=== PATIENT | female | born 1940 | race African-American/Black ===

== ENCOUNTER 2017-04-28 10:18 | Inpatient (IN) | payer MEDICARE, MEDICAID ==
[~2017-04-28] VITALS: Ht 180.3 cm; Wt 100.2 kg
[~2017-04-28 10:18] MED LIST: ALLO300T2 PO; ASPI-1159 PO; COR6 PO; DESI10TA3 PO; DOCU-150 PO; FURO80TA3 PO; HYDR-3933 PO; IBUP-2030 PO; LISI2.5T47 PO; MAPAP PO; MINOXIDIL PO; NORVASC PO; POTA10CA42 PO
[2017-04-28] MEDS ORDERED: FUROSEMIDE 100MG/10ML VIAL IVP ONE (11:00)
[2017-04-28 11:36] LABS: HEMATOCRIT. 32.7 % (36.0-48.0); HEMOGLOBIN. 10.7 g/dL (12.0-16.0); MEAN CORPUSCULAR HEMOGLOBIN 23.8 pg (28.0-32.0); MEAN CORPUSCULAR VOLUME 72.9 fL (81.0-99.0); MEAN PLATELET VOLUME 6.6 fl (7.4-10.4); PLATELET 308 x1000/uL (130-400); RED BLOOD CELL COUNT 4.49 mill/uL (4.2-5.4); RED CELL DISTRIBUTION WIDTH 22.7 % (11.6-14.6)
[2017-04-28 11:52] LABS: TROPONIN I 0.04 ng/mL (0.00-0.04)
[2017-04-28 12:55] LABS: PLATELET ESTIMATE NORMAL
[2017-04-28] MEDS ORDERED: CARV3.1242 PO (13:45)
[2017-04-28] MEDS ORDERED: ALLO300T2 PO (13:45)
[2017-04-28] MEDS ORDERED: LISI-604 PO (13:45)
[2017-04-28] MEDS ORDERED: SPIR25TA4 PO (13:45)
[2017-04-28] MEDS ORDERED: MINO2.5T19 GT (13:45)
[2017-04-28] MEDS ORDERED: GABA-531 PO (13:45)
[2017-04-28] MEDS ORDERED: DOCU-150 PO (13:45)
[2017-04-28] MEDS ORDERED: FURO80TA3 PO (13:45)
[2017-04-28] MEDS ORDERED: ASPI-1159 PO (13:45)
[2017-04-28] MEDS ORDERED: POTA10CA42 PO (13:45)
[2017-04-28] MEDS ORDERED: AMLO5TAB4 PO (13:45)
[2017-04-28] MEDS ORDERED: HYDR-4094 PO (13:45)
[2017-04-28 15:50] VITALS: BP 145/73
[2017-04-28] MEDS ORDERED: FUROSEMIDE 40MG/4ML VIAL IVP SCH (17:00)
[2017-04-28 18:00] VITALS: BP 154/85
[2017-04-28] MEDS ORDERED: MORPHINE SULFATE 4 MG/ML CPJ (NOT FOR IM USE) IV PRN (19:00)
[2017-04-28] MEDS ORDERED: MAGNESIUM/ALUMINUM HYDROXIDE/SIMETHICONE 30ML UDC PO PRN (19:00)
[2017-04-28] MEDS ORDERED: ONDANSETRON HCL 4MG/2ML VIAL IV PRN (19:00)
[2017-04-28] MEDS ORDERED: ACETAMINOPHEN 650MG/20.3ML UDC GT PRN (19:00)
[2017-04-28] MEDS ORDERED: IPRATROPIUM/ALBUTEROL 0.5-3(2.5)MG/3ML NEB INH PRN (19:00)
[2017-04-28] MEDS ORDERED: NA PHOS,M-B/NA PHOS,DI-BA ENEMA 118ML PR PRN (19:00)
[2017-04-28] MEDS ORDERED: DEXTROSE 50% WATER 50ML SYRINGE IV PRN (19:00)
[2017-04-28] MEDS ORDERED: ACETAMINOPHEN 650MG SUPP PR PRN (19:00)
[2017-04-28] MEDS ORDERED: HYDROCODONE/ACETAMINOPHEN 5/325MG TABLET PO PRN (19:00)
[2017-04-28] MEDS ORDERED: DIPHENHYDRAMINE 50MG/ML VIAL IV PRN (19:00)
[2017-04-28 20:00] VITALS: BP 144/67
[2017-04-28] MEDS: INSULIN LISPRO 100 UNITS/ML SUBCUT SCH (21:00)
[2017-04-28] MEDS: SODIUM CHLORIDE 0.9% INJ 3ML FLUSH IVF SCH (21:01)
[2017-04-28] MEDS: ENOXAPARIN 40MG/0.4ML SYR SUBCUT SCH (21:06)
[2017-04-28] MEDS: BLOOD SUGAR DIAGNOSTIC STRIP TEST SCH (21:07)
[2017-04-28] MEDS: CARVEDILOL 6.25 MG TABLET PO SCH (21:07)
[2017-04-28 22:00] VITALS: BP 158/64
[2017-04-28] MEDS: LORAZEPAM 2MG/ML CPJ IV PRN (23:41)
[2017-04-29] VITALS (11 sets, daily range): BP systolic 120–172; BP diastolic 63–78
[2017-04-29] MEDS: SODIUM CHLORIDE 0.9% INJ 3ML FLUSH IVF SCH ×3 (05:00→21:14)
[2017-04-29 06:52] LABS: CHLORIDE 105 mEq/L (98-107)
[2017-04-29 06:52] LABS: HEMATOCRIT. 29.5 % (36.0-48.0); HEMOGLOBIN. 9.5 g/dL (12.0-16.0); MEAN CORPUSCULAR HEMOGLOBIN 23.4 pg (28.0-32.0); MEAN CORPUSCULAR VOLUME 72.6 fL (81.0-99.0); MEAN PLATELET VOLUME 7.5 fl (7.4-10.4); PLATELET 286 x1000/uL (130-400); RED BLOOD CELL COUNT 4.06 mill/uL (4.2-5.4); RED CELL DISTRIBUTION WIDTH 22.7 % (11.6-14.6)
[2017-04-29 07:02] LABS: CARBON DIOXIDE 27 mEq/L (21-32)
[2017-04-29 07:42] LABS: PHOSPHORUS 3.9 mg/dL (2.5-4.9)
[2017-04-29] MEDS: INSULIN LISPRO 100 UNITS/ML SUBCUT SCH (08:00)
[2017-04-29] MEDS: BLOOD SUGAR DIAGNOSTIC STRIP TEST SCH (08:12)
[2017-04-29] MEDS: CARVEDILOL 6.25 MG TABLET PO SCH ×2 (08:51→20:38)
[2017-04-29] MEDS: FUROSEMIDE 40MG/4ML VIAL IV SCH ×2 (08:51→17:53)
[2017-04-29 12:39] LABS: PLATELET ESTIMATE NORMAL
[2017-04-29 16:57] LABS: D-DIMER 3.65 mg/L FEU (<0.50); INR 1.1; PROTHROMBIN TIME 11.1 sec (9.4-11.6)
[2017-04-29 17:23] LABS: *AMPHETAMINES SCREEN URINE NEGATIVE (NEGATIVE); *BARBITURATES SCREEN URINE NEGATIVE (NEGATIVE); *BENZODIAZEPINES SCREEN URINE NEGATIVE (NEGATIVE); *COCAINE SCREEN URINE NEGATIVE (NEGATIVE); CANNABINOID URINE SCREEN NEGATIVE (NEGATIVE); METHADONE URINE SCREEN NEGATIVE (NEGATIVE); OPIATES URINE SCREEN NEGATIVE (NEGATIVE); PHENCYCLIDINE URINE SCREEN NEGATIVE (NEGATIVE)
[2017-04-29 17:31] LABS: CLARITY URINE CLEAR (CLEAR); COLOR URINE YELLOW (YELLOW); GLUCOSE URINE NEGATIVE (NEGATIVE); KETONES URINE NEGATIVE (NEGATIVE); LEUKOCYTE ESTERASE URINE NEGATIVE (NEGATIVE); NITRITE URINE NEGATIVE (NEGATIVE); OCCULT BLOOD URINE 1+ (NEGATIVE); PROTEIN URINE 4+ (NEGATIVE); SPECIFIC GRAVITY URINE 1.013 (1.005-1.030); UROBILINOGEN URINE 0.2 E.U./dL (0.2-1.0)
[2017-04-29] MEDS: ENOXAPARIN 40MG/0.4ML SYR SUBCUT SCH (20:37)
[2017-04-30] VITALS (13 sets, daily range): BP systolic 141–183; BP diastolic 68–90
[2017-04-30 00:07] LABS: CREATINE KINASE MB FRACTION 1.8 ng/mL (0.5-3.6); TROPONIN I 0.04 ng/mL (0.00-0.04)
[2017-04-30] MEDS: CLONIDINE 0.1MG TABLET PO PRN ×2 (00:36→14:51)
[2017-04-30] MEDS: LORAZEPAM 2MG/ML CPJ IV PRN (00:39)
[2017-04-30] MEDS: SODIUM CHLORIDE 0.9% INJ 3ML FLUSH IVF SCH ×2 (06:39→13:35)
[2017-04-30 06:40] LABS: HEMATOCRIT. 29.2 % (36.0-48.0); HEMOGLOBIN. 9.4 g/dL (12.0-16.0); MEAN CORPUSCULAR HEMOGLOBIN 23.6 pg (28.0-32.0); MEAN CORPUSCULAR VOLUME 73.1 fL (81.0-99.0); MEAN PLATELET VOLUME 7.4 fl (7.4-10.4); PLATELET 270 x1000/uL (130-400); RED CELL DISTRIBUTION WIDTH 22.5 % (11.6-14.6)
[2017-04-30 06:44] LABS: CARBON DIOXIDE 27 mEq/L (21-32); CHLORIDE 106 mEq/L (98-107); CREATINE KINASE 41 IU/L (26-192); CREATINE KINASE MB FRACTION 0.8 ng/mL (0.5-3.6); PHOSPHORUS 3.6 mg/dL (2.5-4.9); TOTAL IRON BINDING CAPACITY 182 ug/dL (250-450); TROPONIN I 0.04 ng/mL (0.00-0.04)
[2017-04-30 07:54] LABS: HEPATITIS B SURFACE ANTIGEN NEGATIVE
[2017-04-30 08:22] LABS: HEPATITIS B CORE AB IGM NEGATIVE
[2017-04-30 08:24] LABS: HEPATITIS A AB IGM NEGATIVE (NEGATIVE)
[2017-04-30] MEDS: CARVEDILOL 6.25 MG TABLET PO SCH (08:42)
[2017-04-30] MEDS: FUROSEMIDE 40MG/4ML VIAL IV SCH (08:43)
[2017-04-30] MEDS ORDERED: LOSARTAN POTASSIUM 25 MG TABLET PO SCH (09:00)
[2017-04-30] MEDS ORDERED: LOSA50TA20 PO (09:48)
[2017-04-30 11:12] LABS: PLATELET ESTIMATE NORMAL
[2017-04-30 16:42] LABS: CREATINE KINASE MB FRACTION 1.5 ng/mL (0.5-3.6); TROPONIN I 0.03 ng/mL (0.00-0.04)
[2017-04-30] MEDS ORDERED: ENOXAPARIN 30MG/0.3ML SYR SUBCUT SCH (21:00)
[2017-05-01] MEDS ORDERED: LOSARTAN POTASSIUM 50 MG TABLET PO SCH (09:00)
[2017-05-02 09:07] LABS: A/G RATIO 0.6 (0.7-1.7); ALPHA-1-GLOBULIN 0.3 g/dL (0.0-0.4); ALPHA-2-GLOBULIN 1.1 g/dL (0.4-1.0); BETA GLOBULIN 0.8 g/dL (0.7-1.3); GAMMA GLOBULINS 1.3 g/dL (0.4-1.8); GLOBULIN TOTAL 3.5 g/dL (2.2-3.9); IMMUNOGLOBULIN A 257 mg/dL (64-422); IMMUNOGLOBULIN G 1266 mg/dL (700-1600); IMMUNOGLOBULIN M 110 mg/dL (26-217); M-SPIKE Not Observed g/dL (Not Observed); TOTAL PROTEIN SERUM 5.5 g/dL (6.0-8.5)
[2017-05-02 12:00] LABS: ANA IFA Negative (.); ANTI-MYELOPEROXIDASE AB < 9.0 U/mL (0.0-9.0); ANTI-PROTEINASE 3 ABS < 3.5 U/mL (0.0-3.5); ATYPICAL P-ANCA <1:20 titer (Neg:<1:20); CYTOPLASMIC C-ANCA <1:20 titer (Neg:<1:20); PERINUCLEAR P-ANCA <1:20 titer (Neg:<1:20)
== END 2017-04-30 17:25 | disposition home or self-care (01) | DRG 291 ==
LOC: ER 10:18 → 5EST 12:47 → ENRESERV 14:42
PROVIDERS: ADMIT Family Medicine; ATTEND Family Medicine
DX: I13.0 Hypertensive heart and chronic kidney disease with heart failure and stage 1 through stage 4 chronic kidney disease, or unspecified chronic kidney disease (principal); E43 Unspecified severe protein-calorie malnutrition; N17.0 Acute kidney failure with tubular necrosis; N04.9 Nephrotic syndrome with unspecified morphologic changes; B02.29 Other postherpetic nervous system involvement; I27.2 Other secondary pulmonary hypertension; I42.9 Cardiomyopathy, unspecified; D64.9 Anemia, unspecified; E66.9 Obesity, unspecified; I49.5 Sick sinus syndrome; M17.0 Bilateral primary osteoarthritis of knee; R73.9 Hyperglycemia, unspecified; R26.2 Difficulty in walking, not elsewhere classified; E78.5 Hyperlipidemia, unspecified; I50.9 Heart failure, unspecified; I73.9 Peripheral vascular disease, unspecified; M10.9 Gout, unspecified; N18.3 Chronic kidney disease, stage 3 (moderate); Z82.49 Family history of ischemic heart disease and other diseases of the circulatory system; Z86.19 Personal history of other infectious and parasitic diseases; Z68.30 Body mass index [BMI] 30.0-30.9, adult; Z95.0 Presence of cardiac pacemaker; Z79.82 Long term (current) use of aspirin; Z79.899 Other long term (current) drug therapy
CPT/HCPCS: 36415; 51702; 71010; 76770; 80048; 80053; 80061; 80305; 81001; 82550; 82553; 82570; 82784; 82962; 83036; 83520; 83540; 83550; 83735; 83880; 84100; 84155; 84156; 84165; 84439; 84443; 84484; 84550; 85025; 85379; 85610; 85651; 86256; 86334; 86430; 86705; 86709; 86803; 87086; 87340; 93005; 93306; 96374; 99285; C1893; J1650; J1940; J2060; A4315

== ENCOUNTER 2017-05-13 11:29 | Inpatient (IN) | payer MEDICARE, MEDICAID ==
[~2017-05-13] VITALS: Ht 180.3 cm; Wt 99.8 kg
[~2017-05-13 11:29] MED LIST changes: -ALLO300T2 PO; +AMLO5TAB4 PO; -ASPI-1159 PO; -DESI10TA3 PO; -DOCU-150 PO; -HYDR-3933 PO; -IBUP-2030 PO; -LISI2.5T47 PO; +LOSA50TA20 PO; -MAPAP PO; -MINOXIDIL PO; -NORVASC PO
[2017-05-13] MEDS ORDERED: FUROSEMIDE 40MG/4ML VIAL IV STA (12:05)
[2017-05-13 12:42] LABS: CLARITY URINE CLOUDY (CLEAR); COLOR URINE YELLOW (YELLOW); GLUCOSE URINE NEGATIVE (NEGATIVE); KETONES URINE NEGATIVE (NEGATIVE); LEUKOCYTE ESTERASE URINE NEGATIVE (NEGATIVE); NITRITE URINE NEGATIVE (NEGATIVE); OCCULT BLOOD URINE 2+ (NEGATIVE); PH URINE 5.5 (4.5-8.0); PROTEIN URINE 4+ (NEGATIVE); SPECIFIC GRAVITY URINE 1.026 (1.005-1.030); UROBILINOGEN URINE 0.2 E.U./dL (0.2-1.0)
[2017-05-13 13:34] LABS: HEMATOCRIT. 33.5 % (36.0-48.0); HEMOGLOBIN. 10.8 g/dL (12.0-16.0); MEAN CORPUSCULAR HEMOGLOBIN 23.5 pg (28.0-32.0); MEAN CORPUSCULAR VOLUME 72.8 fL (81.0-99.0); MEAN PLATELET VOLUME 7.5 fl (7.4-10.4); PLATELET 325 x1000/uL (130-400); RED CELL DISTRIBUTION WIDTH 22.8 % (11.6-14.6)
[2017-05-13 13:37] LABS: PARTIAL THROMBOPLASTIN TIME 28.9 sec (23.4-31.0); PROTHROMBIN TIME 10.6 sec (9.4-11.6)
[2017-05-13 13:43] LABS: CARBON DIOXIDE 26 mEq/L (21-32); CHLORIDE 105 mEq/L (98-107)
[2017-05-13 13:45] LABS: D-DIMER 6.2 mg/L FEU (<0.50)
[2017-05-13 13:46] LABS: CREATINE KINASE 66 IU/L (26-192); TROPONIN I 0.05 ng/mL (0.00-0.04)
[2017-05-13 14:28] LABS: ATYPICAL LYMPHOCYTES 1; PLATELET ESTIMATE NORMAL
[2017-05-13 19:35] VITALS: BP_SYST 140; BP_SYST 152; BP_DIAS 62; BP_DIAS 76
[2017-05-13] MEDS ORDERED: ONDANSETRON HCL 4MG/2ML VIAL IV PRN (21:15)
[2017-05-13] MEDS ORDERED: ACETAMINOPHEN 325MG TABLET PO PRN (21:15)
[2017-05-13] MEDS ORDERED: HYDR-523 PO (21:22)
[2017-05-13] MEDS ORDERED: MINO2.5T19 PO (21:22)
[2017-05-13] MEDS ORDERED: SPIR25TA4 PO (21:22)
[2017-05-13] MEDS ORDERED: GABA-531 PO (21:22)
[2017-05-13] MEDS ORDERED: DOCU-138 PO (21:22)
[2017-05-13] MEDS ORDERED: GABAPENTIN 300MG CAPSULE PO PRN (21:30)
[2017-05-14] VITALS: BP 168/56
[2017-05-14 01:15] LABS: TROPONIN I 0.05 ng/mL (0.00-0.04)
[2017-05-14 04:00] VITALS: BP 146/51
[2017-05-14 08:00] VITALS: BP 102/48
[2017-05-14 08:17] LABS: HEMATOCRIT. 33.3 % (36.0-48.0); HEMOGLOBIN. 10.8 g/dL (12.0-16.0); MEAN CORPUSCULAR HEMOGLOBIN 23.6 pg (28.0-32.0); MEAN CORPUSCULAR VOLUME 72.5 fL (81.0-99.0); PLATELET 317 x1000/uL (130-400); RED BLOOD CELL COUNT 4.59 mill/uL (4.2-5.4); RED CELL DISTRIBUTION WIDTH 22.5 % (11.6-14.6)
[2017-05-14 08:52] LABS: CARBON DIOXIDE 26 mEq/L (21-32); CHLORIDE 108 mEq/L (98-107); CREATINE KINASE 43 IU/L (26-192); CREATINE KINASE MB FRACTION 0.9 ng/mL (0.5-3.6); TROPONIN I 0.05 ng/mL (0.00-0.04)
[2017-05-14] MEDS: AMLODIPINE 5MG TABLET PO SCH ×2 (09:00→20:54)
[2017-05-14] MEDS: DOCUSATE SODIUM 100MG CAPSULE PO SCH (09:00)
[2017-05-14] MEDS: FUROSEMIDE 40MG/4ML VIAL IVP SCH (09:00)
[2017-05-14] MEDS: MINOXIDIL 2.5MG TABLET PO SCH ×2 (09:00→17:39)
[2017-05-14] MEDS: LOSARTAN POTASSIUM 50 MG TABLET PO SCH (09:04)
[2017-05-14] MEDS: CARVEDILOL 6.25 MG TABLET PO SCH (09:05)
[2017-05-14] MEDS: SPIRONOLACTONE 25MG TABLET PO SCH (09:05)
[2017-05-14] MEDS: HYDROCODONE/ACETAMINOPHEN 5/325MG TABLET PO PRN (11:27)
[2017-05-14 12:00] VITALS: BP 164/64
[2017-05-14 13:12] LABS: PLATELET ESTIMATE NORMAL
[2017-05-14 16:00] VITALS: BP 148/70
[2017-05-14 20:00] VITALS: BP 157/57
[2017-05-15] VITALS: BP 157/61
[2017-05-15] MEDS: HYDROCODONE/ACETAMINOPHEN 5/325MG TABLET PO PRN ×2 (00:47→22:34)
[2017-05-15 04:00] VITALS: BP 167/65
[2017-05-15] MEDS: AMLODIPINE 5MG TABLET PO SCH ×2 (05:33→22:34)
[2017-05-15 08:00] VITALS: BP 161/67
[2017-05-15] MEDS: MINOXIDIL 2.5MG TABLET PO SCH ×2 (08:31→17:25)
[2017-05-15] MEDS: LOSARTAN POTASSIUM 50 MG TABLET PO SCH (08:31)
[2017-05-15] MEDS: DOCUSATE SODIUM 100MG CAPSULE PO SCH (08:31)
[2017-05-15] MEDS: CARVEDILOL 6.25 MG TABLET PO SCH (08:32)
[2017-05-15] MEDS: SPIRONOLACTONE 25MG TABLET PO SCH (08:33)
[2017-05-15] MEDS: FUROSEMIDE 40MG/4ML VIAL IVP SCH (08:33)
[2017-05-15 10:20] LABS: CARBON DIOXIDE 27 mEq/L (21-32); CHLORIDE 105 mEq/L (98-107); HEMATOCRIT. 35.1 % (36.0-48.0); HEMOGLOBIN. 11.3 g/dL (12.0-16.0); MEAN CORPUSCULAR HEMOGLOBIN 23.4 pg (28.0-32.0); MEAN CORPUSCULAR VOLUME 72.4 fL (81.0-99.0); MEAN PLATELET VOLUME 7.2 fl (7.4-10.4); PLATELET 326 x1000/uL (130-400); RED BLOOD CELL COUNT 4.85 mill/uL (4.2-5.4); RED CELL DISTRIBUTION WIDTH 22.6 % (11.6-14.6)
[2017-05-15 11:34] LABS: PLATELET ESTIMATE NORMAL
[2017-05-15 12:00] VITALS: BP 157/65
[2017-05-15 16:00] VITALS: BP 160/67
[2017-05-16 08:00] VITALS: BP 133/57
[2017-05-16] MEDS: LOSARTAN POTASSIUM 50 MG TABLET PO SCH (08:53)
[2017-05-16] MEDS: SPIRONOLACTONE 25MG TABLET PO SCH (08:54)
[2017-05-16] MEDS: AMLODIPINE 5MG TABLET PO SCH (08:54)
[2017-05-16] MEDS: DOCUSATE SODIUM 100MG CAPSULE PO SCH (08:54)
[2017-05-16] MEDS: MINOXIDIL 2.5MG TABLET PO SCH (08:54)
[2017-05-16] MEDS: FUROSEMIDE 40MG/4ML VIAL IVP SCH (08:55)
[2017-05-16] MEDS: CARVEDILOL 6.25 MG TABLET PO SCH (08:55)
[2017-05-16 09:10] VITALS: BP 133/57
[2017-05-16 12:00] VITALS: BP 155/69
== END 2017-05-16 12:24 | disposition home or self-care (01) | DRG 194 ==
LOC: ER 11:59 → 7WST 14:58 → EDBEDREQTM 15:02 → EDBEDREQ 15:02 → ENRESERV 16:13
PROVIDERS: ADMIT Family Medicine; ATTEND Family Medicine
DX: I13.0 Hypertensive heart and chronic kidney disease with heart failure and stage 1 through stage 4 chronic kidney disease, or unspecified chronic kidney disease (principal); J96.00 Acute respiratory failure, unspecified whether with hypoxia or hypercapnia; E43 Unspecified severe protein-calorie malnutrition; I27.2 Other secondary pulmonary hypertension; N18.9 Chronic kidney disease, unspecified; D50.9 Iron deficiency anemia, unspecified; E78.5 Hyperlipidemia, unspecified; I34.0 Nonrheumatic mitral (valve) insufficiency; I73.9 Peripheral vascular disease, unspecified; Z68.30 Body mass index [BMI] 30.0-30.9, adult; M10.9 Gout, unspecified; Z80.9 Family history of malignant neoplasm, unspecified; Z82.49 Family history of ischemic heart disease and other diseases of the circulatory system; Z88.8 Allergy status to other drugs, medicaments and biological substances; Z95.0 Presence of cardiac pacemaker; Z95.810 Presence of automatic (implantable) cardiac defibrillator; I50.33 Acute on chronic diastolic (congestive) heart failure
CPT/HCPCS: 36415; 51702; 71010; 78582; 80053; 81001; 82550; 82553; 83605; 83690; 83880; 84484; 85025; 85379; 85610; 85730; 87040; 93005; 93306; 93970; 96374; 97110; 97116; 97162; 97530; 99285; A9558; J1940; A4315

== ENCOUNTER 2017-05-25 10:38 | Inpatient (IN) | payer MEDICARE, MEDICAID ==
[~2017-05-25] VITALS: Ht 180.3 cm; Wt 103.4 kg
[~2017-05-25 10:38] MED LIST changes: +DOCU-138 PO; +GABA-531 PO; +HYDR-523 PO; +MINO2.5T19 PO; +SPIR25TA4 PO
[2017-05-25 11:41] LABS: HEMATOCRIT. 34.4 % (36.0-48.0); MEAN CORPUSCULAR HEMOGLOBIN 23.3 pg (28.0-32.0); MEAN CORPUSCULAR VOLUME 72.8 fL (81.0-99.0); MEAN PLATELET VOLUME 6.7 fl (7.4-10.4); PLATELET 316 x1000/uL (130-400); RED BLOOD CELL COUNT 4.73 mill/uL (4.2-5.4); RED CELL DISTRIBUTION WIDTH 23.1 % (11.6-14.6)
[2017-05-25 11:50] LABS: INR 1.1
[2017-05-25 11:53] LABS: CARBON DIOXIDE 22 mEq/L (21-32); CHLORIDE 106 mEq/L (98-107)
[2017-05-25 13:13] LABS: PLATELET ESTIMATE NORMAL
[2017-05-25] MEDS ORDERED: CEFTRIAXONE 1 G PREMIX 50 ML IV ONE (13:45)
[2017-05-25] MEDS ORDERED: FUROSEMIDE 40MG/4ML VIAL IVP ONE (14:00)
[2017-05-25 17:00] VITALS: BP 165/70
[2017-05-25 20:00] VITALS: BP 170/78
[2017-05-25] MEDS ORDERED: ACETAMINOPHEN 650MG/20.3ML UDC GT PRN (20:15)
[2017-05-25] MEDS ORDERED: ACETAMINOPHEN 650MG SUPP PR PRN (20:15)
[2017-05-25] MEDS ORDERED: MINOXIDIL 2.5MG TABLET PO SCH (20:15)
[2017-05-25] MEDS ORDERED: DOCUSATE SODIUM 100MG CAPSULE PO PRN (20:15)
[2017-05-25] MEDS ORDERED: ACETAMINOPHEN 325MG TABLET PO PRN (20:15)
[2017-05-25] MEDS ORDERED: CARVEDILOL 6.25 MG TABLET PO SCH (20:15)
[2017-05-25] MEDS ORDERED: NA PHOS,M-B/NA PHOS,DI-BA ENEMA 118ML PR PRN (20:15)
[2017-05-25] MEDS ORDERED: DIPHENHYDRAMINE 50MG/ML VIAL IV PRN (20:15)
[2017-05-25] MEDS: DOCUSATE SODIUM 100MG CAPSULE PO SCH (20:15)
[2017-05-25] MEDS ORDERED: SPIRONOLACTONE 5MG/ML 1ML ORAL SYR(NEO) PO SCH (20:15)
[2017-05-25] MEDS ORDERED: ONDANSETRON HCL 4MG/2ML VIAL IV PRN (20:15)
[2017-05-25] MEDS ORDERED: GUAIFENESIN 200MG/10ML SUGAR FREE UDC PO PRN (20:30)
[2017-05-25] MEDS ORDERED: IPRATROPIUM/ALBUTEROL 0.5-3(2.5)MG/3ML NEB INH PRN (20:30)
[2017-05-25] MEDS: LOSARTAN POTASSIUM 50 MG TABLET PO SCH (20:47)
[2017-05-25] MEDS: SODIUM CHLORIDE 0.9% INJ 3ML FLUSH IVF SCH (20:47)
[2017-05-25] MEDS: HYDROCODONE/ACETAMINOPHEN 5/325MG TABLET PO PRN (20:47)
[2017-05-25] MEDS: AMLODIPINE 5MG TABLET PO SCH (20:47)
[2017-05-25] MEDS ORDERED: MORPHINE SULFATE 4 MG/ML CPJ (NOT FOR IM USE) IV PRN (21:00)
[2017-05-25] MEDS ORDERED: GABAPENTIN 300MG CAPSULE PO PRN (21:00)
[2017-05-25] MEDS ORDERED: SPIRONOLACTONE 25MG TABLET PO SCH (21:00)
[2017-05-25] MEDS ORDERED: MAGNESIUM/ALUMINUM HYDROXIDE/SIMETHICONE 30ML UDC PO PRN (21:00)
[2017-05-26] VITALS (15 sets, daily range): BP systolic 129–153; BP diastolic 59–75
[2017-05-26 02:41] LABS: CLARITY URINE TURBID (CLEAR); COLOR URINE YELLOW (YELLOW); GLUCOSE URINE NEGATIVE (NEGATIVE); KETONES URINE NEGATIVE (NEGATIVE); LEUKOCYTE ESTERASE URINE 3+ (NEGATIVE); NITRITE URINE POSITIVE (NEGATIVE); OCCULT BLOOD URINE 2+ (NEGATIVE); PH URINE 5.5 (4.5-8.0); PROTEIN URINE 4+ (NEGATIVE); SPECIFIC GRAVITY URINE 1.016 (1.005-1.030); UROBILINOGEN URINE 0.2 E.U./dL (0.2-1.0)
[2017-05-26] MEDS: SODIUM CHLORIDE 0.9% INJ 3ML FLUSH IVF SCH ×3 (05:01→20:49)
[2017-05-26 06:13] LABS: BASOPHILS % 1.3 % (0.0-2.0); EOSINOPHILS % 7.9 % (0.0-5.0); HEMATOCRIT. 29.8 % (36.0-48.0); HEMOGLOBIN. 9.8 g/dL (12.0-16.0); LYMPHOCYTES % 18.5 % (20.0-50.0); MEAN CORPUSCULAR HEMOGLOBIN 23.6 pg (28.0-32.0); MEAN CORPUSCULAR VOLUME 71.8 fL (81.0-99.0); MEAN PLATELET VOLUME 7.2 fl (7.4-10.4); MONOCYTES % 13.5 % (2.0-8.0); NEUTROPHILS % 58.8 % (40.0-76.0); PLATELET 296 x1000/uL (130-400); RED BLOOD CELL COUNT 4.15 mill/uL (4.2-5.4); RED CELL DISTRIBUTION WIDTH 23.5 % (11.6-14.6)
[2017-05-26 06:19] LABS: INR 1.1; PARTIAL THROMBOPLASTIN TIME 30.3 sec (23.4-31.0); PROTHROMBIN TIME 11.1 sec (9.4-11.6)
[2017-05-26 07:30] LABS: CARBON DIOXIDE 25 mEq/L (21-32); CHLORIDE 108 mEq/L (98-107); HDL CHOLESTEROL 79 mg/dL (40-59); LDL CHOLESTEROL 99 mg/dL (5-100); TOTAL IRON BINDING CAPACITY 165 ug/dL (250-450)
[2017-05-26] MEDS ORDERED: FUROSEMIDE 80MG TABLET PO SCH (09:00)
[2017-05-26] MEDS ORDERED: SODIUM POLYSTYRENE SULFONATE 15 G/60 ML BOT PO SCH (09:00)
[2017-05-26] MEDS: DOCUSATE SODIUM 100MG CAPSULE PO SCH (09:00)
[2017-05-26] MEDS ORDERED: FENTANYL CITRATE/PF 50MCG/ML 2ML VIAL ONE (09:13)
[2017-05-26] MEDS ORDERED: GABAPENTIN 300MG CAPSULE PO PRN (09:15)
[2017-05-26] MEDS ORDERED: SODIUM BICARBONATE 4% (2.4MEQ) 5ML VIAL IV ONE (09:43)
[2017-05-26] MEDS ORDERED: FENTANYL CITRATE/PF 50MCG/ML 2ML VIAL IV ONE (10:30)
[2017-05-26] MEDS: CEFTRIAXONE 1 G PREMIX 50 ML IV SCH (11:00)
[2017-05-26] MEDS: FUROSEMIDE 40MG/4ML VIAL IVP SCH ×2 (11:53→16:58)
[2017-05-26] MEDS: CARVEDILOL 6.25 MG TABLET PO SCH ×2 (11:54→20:47)
[2017-05-26] MEDS: LOSARTAN POTASSIUM 50 MG TABLET PO SCH (11:54)
[2017-05-26] MEDS: AMLODIPINE 5MG TABLET PO SCH ×2 (11:54→17:00)
[2017-05-26] MEDS ORDERED: LIDOCAINE HCL 1% 20ML VIAL (Pyxis) INJ ONE (12:47)
[2017-05-26 16:41] LABS: HEMATOCRIT 36.2 % (36.0-48.0); HEMOGLOBIN 11.5 g/dL (12.0-16.0)
[2017-05-26] MEDS: HYDROCODONE/ACETAMINOPHEN 5/325MG TABLET PO PRN (20:48)
[2017-05-27] VITALS (7 sets, daily range): BP systolic 145–169; BP diastolic 62–73
[2017-05-27] MEDS: SODIUM CHLORIDE 0.9% INJ 3ML FLUSH IVF SCH ×3 (06:13→21:39)
[2017-05-27 09:16] LABS: EOSINOPHILS % 3.6 % (0.0-5.0); HEMATOCRIT. 33.4 % (36.0-48.0); HEMOGLOBIN. 10.8 g/dL (12.0-16.0); LYMPHOCYTES % 19.6 % (20.0-50.0); MEAN CORPUSCULAR HEMOGLOBIN 23.4 pg (28.0-32.0); MEAN CORPUSCULAR VOLUME 72.5 fL (81.0-99.0); MEAN PLATELET VOLUME 7.7 fl (7.4-10.4); MONOCYTES % 9.7 % (2.0-8.0); NEUTROPHILS % 65.1 % (40.0-76.0); PLATELET 333 x1000/uL (130-400); RED BLOOD CELL COUNT 4.61 mill/uL (4.2-5.4); RED CELL DISTRIBUTION WIDTH 23.6 % (11.6-14.6)
[2017-05-27] MEDS: FUROSEMIDE 40MG/4ML VIAL IVP SCH ×2 (09:40→18:44)
[2017-05-27] MEDS: DOCUSATE SODIUM 100MG CAPSULE PO SCH (09:40)
[2017-05-27] MEDS: LOSARTAN POTASSIUM 50 MG TABLET PO SCH (09:42)
[2017-05-27] MEDS: CARVEDILOL 6.25 MG TABLET PO SCH ×2 (09:42→21:33)
[2017-05-27] MEDS: AMLODIPINE 5MG TABLET PO SCH ×2 (09:43→18:43)
[2017-05-27] MEDS: CEFTRIAXONE 1 G PREMIX 50 ML IV SCH (09:47)
[2017-05-27 17:39] LABS: BASOPHILS % 1.5 % (0.0-2.0); HEMATOCRIT. 34.1 % (36.0-48.0); LYMPHOCYTES % 16.5 % (20.0-50.0); MEAN CORPUSCULAR VOLUME 71.2 fL (81.0-99.0); MEAN PLATELET VOLUME 8.4 fl (7.4-10.4); PLATELET 318 x1000/uL (130-400); RED CELL DISTRIBUTION WIDTH 23.1 % (11.6-14.6)
[2017-05-27 17:49] LABS: PHOSPHORUS 3.5 mg/dL (2.5-4.9)
[2017-05-27 18:39] LABS: PLATELET ESTIMATE NORMAL
[2017-05-27] MEDS: CLONIDINE 0.1MG TABLET PO PRN (21:33)
[2017-05-28] VITALS (7 sets, daily range): BP systolic 129–171; BP diastolic 55–74
[2017-05-28] MEDS: SODIUM CHLORIDE 0.9% INJ 3ML FLUSH IVF SCH ×3 (05:41→21:37)
[2017-05-28 08:04] LABS: HEMATOCRIT. 29.5 % (36.0-48.0); HEMOGLOBIN. 9.7 g/dL (12.0-16.0); MEAN CORPUSCULAR HEMOGLOBIN 23.5 pg (28.0-32.0); MEAN CORPUSCULAR VOLUME 71.6 fL (81.0-99.0); MEAN PLATELET VOLUME 8.4 fl (7.4-10.4); PLATELET 285 x1000/uL (130-400); RED BLOOD CELL COUNT 4.12 mill/uL (4.2-5.4); RED CELL DISTRIBUTION WIDTH 22.9 % (11.6-14.6)
[2017-05-28] MEDS: DOCUSATE SODIUM 100MG CAPSULE PO SCH (09:00)
[2017-05-28 09:05] LABS: PHOSPHORUS 3.5 mg/dL (2.5-4.9)
[2017-05-28] MEDS: LOSARTAN POTASSIUM 50 MG TABLET PO SCH (09:40)
[2017-05-28] MEDS: FUROSEMIDE 40MG/4ML VIAL IVP SCH (09:40)
[2017-05-28] MEDS: CARVEDILOL 6.25 MG TABLET PO SCH ×2 (09:40→21:36)
[2017-05-28] MEDS: AMLODIPINE 5MG TABLET PO SCH ×3 (09:40→18:14)
[2017-05-28] MEDS: CEFTRIAXONE 1 G PREMIX 50 ML IV SCH (09:40)
[2017-05-28 11:02] LABS: PLATELET ESTIMATE NORMAL
[2017-05-28] MEDS: FUROSEMIDE 40MG TABLET PO SCH (21:35)
[2017-05-29] VITALS: BP 151/71
[2017-05-29] MEDS: CLONIDINE 0.1MG TABLET PO PRN (03:53)
[2017-05-29 04:00] VITALS: BP 189/79
[2017-05-29] MEDS: SODIUM CHLORIDE 0.9% INJ 3ML FLUSH IVF SCH (05:39)
[2017-05-29 05:46] VITALS: BP 137/68
[2017-05-29 06:40] LABS: BASOPHILS % 1.1 % (0.0-2.0); EOSINOPHILS % 3.1 % (0.0-5.0); HEMATOCRIT. 34.4 % (36.0-48.0); HEMOGLOBIN. 10.9 g/dL (12.0-16.0); LYMPHOCYTES % 41.5 % (20.0-50.0); MEAN CORPUSCULAR HEMOGLOBIN 23.3 pg (28.0-32.0); MEAN CORPUSCULAR VOLUME 73.2 fL (81.0-99.0); MEAN PLATELET VOLUME 8.6 fl (7.4-10.4); MONOCYTES % 8.8 % (2.0-8.0); NEUTROPHILS % 45.5 % (40.0-76.0); PLATELET 285 x1000/uL (130-400); RED CELL DISTRIBUTION WIDTH 23.4 % (11.6-14.6)
[2017-05-29] MEDS: DOCUSATE SODIUM 100MG CAPSULE PO SCH ×2 (09:00→09:16)
[2017-05-29] MEDS ORDERED: LOSARTAN POTASSIUM 50 MG TABLET PO SCH (09:00)
[2017-05-29] MEDS: CARVEDILOL 6.25 MG TABLET PO SCH (09:15)
[2017-05-29] MEDS: AMLODIPINE 5MG TABLET PO SCH (09:15)
[2017-05-29] MEDS: FUROSEMIDE 40MG TABLET PO SCH (09:16)
[2017-05-29] MEDS: CEFTRIAXONE 1 G PREMIX 50 ML IV SCH (09:18)
[2017-05-29 11:27] VITALS: BP 147/147
== END 2017-05-29 13:59 | disposition home or self-care (01) | DRG 720 ==
LOC: ER 10:38 → EDBEDREQ 14:26 → EDBEDREQSVC 14:26 → EDBEDREQTM 14:26 → CANRESERV 14:40 → ENRESERV 14:40 → EDBEDREQSVC 14:47 → 7WST 14:48 → EDBEDREQ 14:56 → EDBEDREQTM 14:56
PROVIDERS: ADMIT Family Medicine; ATTEND Family Medicine
PROC: 0TB13ZX Excision of Left Kidney, Percutaneous Approach, Diagnostic (ICD-10-PCS; principal; 2017-05-26)
DX: A41.9 Sepsis, unspecified organism (principal); N17.0 Acute kidney failure with tubular necrosis; E43 Unspecified severe protein-calorie malnutrition; I50.33 Acute on chronic diastolic (congestive) heart failure; I13.0 Hypertensive heart and chronic kidney disease with heart failure and stage 1 through stage 4 chronic kidney disease, or unspecified chronic kidney disease; N18.3 Chronic kidney disease, stage 3 (moderate); E88.09 Other disorders of plasma-protein metabolism, not elsewhere classified; N04.9 Nephrotic syndrome with unspecified morphologic changes; M06.9 Rheumatoid arthritis, unspecified; I50.9 Heart failure, unspecified; N39.0 Urinary tract infection, site not specified; E87.5 Hyperkalemia; M17.0 Bilateral primary osteoarthritis of knee; D50.9 Iron deficiency anemia, unspecified; M79.7 Fibromyalgia; I73.9 Peripheral vascular disease, unspecified; E78.5 Hyperlipidemia, unspecified; M10.9 Gout, unspecified; Z68.31 Body mass index [BMI] 31.0-31.9, adult; Z95.0 Presence of cardiac pacemaker; Z88.8 Allergy status to other drugs, medicaments and biological substances; Z79.899 Other long term (current) drug therapy; Z82.49 Family history of ischemic heart disease and other diseases of the circulatory system; Z80.9 Family history of malignant neoplasm, unspecified; Z86.19 Personal history of other infectious and parasitic diseases; D63.8 Anemia in other chronic diseases classified elsewhere
CPT/HCPCS: 36415; 71010; 76942; 80048; 80053; 80061; 81001; 82570; 83540; 83550; 83735; 83880; 84100; 84156; 84300; 84484; 84550; 85014; 85018; 85025; 85610; 85651; 85730; 87077; 87086; 87186; 88305; 88346; 88348; 93005; 96374; 99291; C1893; J0696; J1940; J3010; J3490; J7050; A4315

== ENCOUNTER 2020-04-01 23:14 | Inpatient (IN) | payer MEDICARE, MEDICAID ==
[~2020-04-01] VITALS: Ht 177.8 cm; Wt 82.6 kg
[~2020-04-01 23:14] MED LIST changes: -AMLO5TAB4 PO; +ASPI-1158 PO; +ATOR20TA65 PO; +CELL5 PO; +CHOL500010 PO; -COR6 PO; +HYDR200T35 PO; +LOSA100T32 PO; -LOSA50TA20 PO; -MINO2.5T19 PO; +NIFE60TA78 PO; -POTA10CA42 PO; +PRED10TA PO; -SPIR25TA4 PO; +SPIR25TA6 PO; +SULF1TAB48 PO
[2020-04-01] MEDS ORDERED: ONDANSETRON HCL 4MG/2ML INJ IV STA (23:32)
[2020-04-01] MEDS ORDERED: KETOROLAC 30MG/ML VIAL IV STA (23:32)
[2020-04-01] MEDS ORDERED: SODIUM CHLORIDE 0.9% 1,000 ML IV ONE (23:32)
[2020-04-01 23:54] LABS: BASOPHILS % 1.1 % (0.0-2.0); EOSINOPHILS % 3.5 % (0.0-5.0); HEMATOCRIT. 38.4 % (36.0-48.0); HEMOGLOBIN. 12.6 g/dL (12.0-16.0); LYMPHOCYTES % 34.3 % (20.0-50.0); MEAN CORPUSCULAR VOLUME 73.3 fL (81.0-99.0); MEAN PLATELET VOLUME 8.5 fl (7.4-10.4); MONOCYTES % 11.7 % (2.0-8.0); NEUTROPHILS % 49.4 % (40.0-76.0); PLATELET 247 x1000/uL (130-400); RED BLOOD CELL COUNT 5.24 mill/uL (4.2-5.4); RED CELL DISTRIBUTION WIDTH 23.4 % (11.6-14.6)
[2020-04-01 23:58] LABS: CHLORIDE 104 mEq/L (98-107)
[2020-04-02 00:11] LABS: PROTHROMBIN TIME 10.8 sec (9.6-11.0)
[2020-04-02 00:26] LABS: CLARITY URINE CLEAR (CLEAR); COLOR URINE OTHER (YELLOW); KETONES URINE NEGATIVE (NEGATIVE); LEUKOCYTE ESTERASE URINE 2+ (NEGATIVE); NITRITE URINE NEGATIVE (NEGATIVE); OCCULT BLOOD URINE TRACE (NEGATIVE); PROTEIN URINE 1+ (NEGATIVE); SPECIFIC GRAVITY URINE 1.007 (1.005-1.030); UROBILINOGEN URINE 0.2 E.U./dL (0.2-1.0)
[2020-04-02] MEDS ORDERED: CEFEPIME 1,000 MG in DEXTROSE 5% WATER 50 ML IV SCH (02:45)
[2020-04-02 09:30] VITALS: BP 186/80
[2020-04-02 10:00] VITALS: BP 186/80
[2020-04-02] MEDS ORDERED: MAGNESIUM/ALUMINUM HYDROXIDE/SIMETHICONE 30ML UDC PO PRN (10:15)
[2020-04-02] MEDS ORDERED: NITROGLYCERIN 0.4MG TABLET SL SL PRN (10:15)
[2020-04-02] MEDS ORDERED: ACETAMINOPHEN 325MG TABLET PO PRN ×2 (10:15)
[2020-04-02] MEDS ORDERED: DOCUSATE SODIUM 100MG CAPSULE PO PRN (10:15)
[2020-04-02] MEDS ORDERED: LORAZEPAM 0.5MG TABLET PO PRN (10:15)
[2020-04-02] MEDS ORDERED: IPRATROPIUM/ALBUTEROL 0.5-3(2.5)MG/3ML NEB NEB PRN (10:15)
[2020-04-02] MEDS ORDERED: GUAIFENESIN 200MG/10ML SUGAR FREE UDC PO PRN (10:15)
[2020-04-02] MEDS ORDERED: ONDANSETRON HCL 4MG/2ML INJ IV PRN (10:15)
[2020-04-02] MEDS ORDERED: ZOLPIDEM TARTRATE 5MG TABLET PO PRN (10:15)
[2020-04-02] MEDS ORDERED: CEFTRIAXONE 1 G PREMIX 50 ML IV SCH (10:15)
[2020-04-02] MEDS: NIFEDIPINE XL 60MG TAB PO SCH (10:42)
[2020-04-02] MEDS: MORPHINE SULFATE 4 MG/ML CPJ (NOT FOR IM USE) IV PRN (10:42)
[2020-04-02] MEDS ORDERED: HYDROXYCHLOROQUINE SULFATE 200MG TABLET PO SCH (11:00)
[2020-04-02] MEDS ORDERED: HYDRALAZINE 20MG/ML VIAL IV PRN (11:15)
[2020-04-02] MEDS: FAMOTIDINE 20MG TABLET PO SCH (12:09)
[2020-04-02] MEDS: ASCORBIC ACID 500 MG TABLET PO SCH ×2 (12:09→21:20)
[2020-04-02] MEDS: ASPIRIN 81MG EC TABLET PO SCH (12:09)
[2020-04-02] MEDS: CEFTRIAXONE 1,000 MG in DEXTROSE 5% WATER 50 ML IV SCH (12:10)
[2020-04-02] MEDS: ENOXAPARIN 40MG/0.4ML SYR SUBCUT SCH (12:10)
[2020-04-02 12:30] VITALS: BP 180/71
[2020-04-02] MEDS ORDERED: LEVOFLOXACIN 500MG PREMIX 100 ML IV NR (12:30)
[2020-04-02] MEDS: HYDROXYCHLOROQUINE SULFATE 200MG TABLET PO SCH (13:44)
[2020-04-02] MEDS: CLONIDINE 0.1MG TABLET PO PRN (13:45)
[2020-04-02 15:50] VITALS: BP 156/68
[2020-04-02] MEDS: SPIRONOLACTONE 25MG TABLET PO SCH (15:51)
[2020-04-02] MEDS: LOSARTAN POTASSIUM 100 MG TABLET PO SCH (15:51)
[2020-04-02 16:57] LABS: CREATINE KINASE MB FRACTION 2.1 ng/mL (0.5-3.6)
[2020-04-02] MEDS ORDERED: SPIRONOLACTONE 25MG TABLET PO SCH (18:00)
[2020-04-02 20:00] VITALS: BP 126/78
[2020-04-02] MEDS ORDERED: FUROSEMIDE 40MG TABLET PO SCH (21:00)
[2020-04-02] MEDS: POLYETHYLENE GLYCOL 3350 (17GM) 1 DOSE PACK PO SCH ×2 (21:00→21:20)
[2020-04-02] MEDS ORDERED: ATORVASTATIN CALCIUM 20MG TABLET PO SCH (21:00)
[2020-04-02] MEDS ORDERED: MYCOPHENOLATE MOFETIL 250MG CAPSULE PO SCH ×2 (21:00)
[2020-04-02 21:20] LABS: *AMPHETAMINES SCREEN URINE NEGATIVE (NEGATIVE); *BARBITURATES SCREEN URINE NEGATIVE (NEGATIVE); *BENZODIAZEPINES SCREEN URINE NEGATIVE (NEGATIVE); *COCAINE SCREEN URINE NEGATIVE (NEGATIVE)
[2020-04-02] MEDS: ATORVASTATIN CALCIUM 20MG TABLET PO SCH (21:20)
[2020-04-02 21:21] LABS: CANNABINOID URINE SCREEN NEGATIVE (NEGATIVE); METHADONE URINE SCREEN NEGATIVE (NEGATIVE); OPIATES URINE SCREEN PRESUMTIVE POSITIVE (NEGATIVE); PHENCYCLIDINE URINE SCREEN NEGATIVE (NEGATIVE)
[2020-04-02] MEDS: HYDRALAZINE HCL 10MG TABLET PO SCH (21:21)
[2020-04-03] VITALS: BP 129/58
[2020-04-03 04:00] VITALS: BP 127/54
[2020-04-03 06:46] LABS: BASOPHILS % 1.9 % (0.0-2.0); EOSINOPHILS % 4.2 % (0.0-5.0); HEMATOCRIT. 33.5 % (36.0-48.0); HEMOGLOBIN. 10.9 g/dL (12.0-16.0); LYMPHOCYTES % 41.7 % (20.0-50.0); MEAN CORPUSCULAR HEMOGLOBIN 23.9 pg (28.0-32.0); MEAN CORPUSCULAR VOLUME 73.5 fL (81.0-99.0); MEAN PLATELET VOLUME 7.7 fl (7.4-10.4); NEUTROPHILS % 43.2 % (40.0-76.0); PLATELET 209 x1000/uL (130-400); RED BLOOD CELL COUNT 4.57 mill/uL (4.2-5.4); RED CELL DISTRIBUTION WIDTH 23.3 % (11.6-14.6)
[2020-04-03 07:20] LABS: CHLORIDE 108 mEq/L (98-107)
[2020-04-03 07:34] LABS: C REACTIVE PROTEIN QUANT 2.4 mg/L (0.0-3.0)
[2020-04-03 07:36] LABS: PHOSPHORUS 3.2 mg/dL (2.5-4.9)
[2020-04-03 08:00] VITALS: BP 122/86
[2020-04-03] MEDS: SPIRONOLACTONE 25MG TABLET PO SCH (08:41)
[2020-04-03] MEDS: LOSARTAN POTASSIUM 100 MG TABLET PO SCH (08:41)
[2020-04-03] MEDS: NIFEDIPINE XL 60MG TAB PO SCH (08:41)
[2020-04-03] MEDS: HYDRALAZINE HCL 10MG TABLET PO SCH (08:41)
[2020-04-03] MEDS: ZINC SULFATE 220 MG ( 50 ) CAPSULE PO SCH (08:41)
[2020-04-03] MEDS: ASPIRIN 81MG EC TABLET PO SCH (08:41)
[2020-04-03] MEDS: ASCORBIC ACID 500 MG TABLET PO SCH ×2 (08:41→20:55)
[2020-04-03] MEDS: FAMOTIDINE 20MG TABLET PO SCH (08:41)
[2020-04-03] MEDS: HYDROXYCHLOROQUINE SULFATE 200MG TABLET PO SCH (08:41)
[2020-04-03] MEDS: ENOXAPARIN 40MG/0.4ML SYR SUBCUT SCH (08:43)
[2020-04-03 10:17] LABS: PLATELET ESTIMATE NORMAL
[2020-04-03] MEDS: LEVOFLOXACIN 250MG PREMIX 50 ML IV SCH (11:17)
[2020-04-03 12:00] VITALS: BP 135/71
[2020-04-03] MEDS: CEFTRIAXONE 1,000 MG in DEXTROSE 5% WATER 50 ML IV SCH (13:11)
[2020-04-03] MEDS: MORPHINE SULFATE 4 MG/ML CPJ (NOT FOR IM USE) IV PRN (14:27)
[2020-04-03 16:00] VITALS: BP_SYST 122; BP_SYST 150; BP_DIAS 64; BP_DIAS 89
[2020-04-03 20:00] VITALS: BP 133/63
[2020-04-03] MEDS: POLYETHYLENE GLYCOL 3350 (17GM) 1 DOSE PACK PO SCH (20:55)
[2020-04-03] MEDS: ATORVASTATIN CALCIUM 20MG TABLET PO SCH (20:55)
[2020-04-04] VITALS (7 sets, daily range): BP systolic 118–149; BP diastolic 61–85
[2020-04-04] MEDS: MORPHINE SULFATE 4 MG/ML CPJ (NOT FOR IM USE) IV PRN (05:52)
[2020-04-04 06:27] LABS: BASOPHILS % 1.2 % (0.0-2.0); EOSINOPHILS % 4.1 % (0.0-5.0); HEMATOCRIT. 34.8 % (36.0-48.0); HEMOGLOBIN. 11.2 g/dL (12.0-16.0); LYMPHOCYTES % 35.8 % (20.0-50.0); MEAN CORPUSCULAR HEMOGLOBIN 23.6 pg (28.0-32.0); MEAN CORPUSCULAR VOLUME 73.4 fL (81.0-99.0); MEAN PLATELET VOLUME 8.2 fl (7.4-10.4); MONOCYTES % 13.2 % (2.0-8.0); NEUTROPHILS % 45.7 % (40.0-76.0); PLATELET 220 x1000/uL (130-400); RED BLOOD CELL COUNT 4.75 mill/uL (4.2-5.4); RED CELL DISTRIBUTION WIDTH 23.4 % (11.6-14.6)
[2020-04-04 06:49] LABS: PHOSPHORUS 3.3 mg/dL (2.5-4.9)
[2020-04-04] MEDS: ZINC SULFATE 220 MG ( 50 ) CAPSULE PO SCH (08:09)
[2020-04-04] MEDS: LOSARTAN POTASSIUM 100 MG TABLET PO SCH (08:09)
[2020-04-04] MEDS: ASCORBIC ACID 500 MG TABLET PO SCH ×2 (08:09→21:46)
[2020-04-04] MEDS: HYDROXYCHLOROQUINE SULFATE 200MG TABLET PO SCH (08:09)
[2020-04-04] MEDS: SPIRONOLACTONE 25MG TABLET PO SCH (08:09)
[2020-04-04] MEDS: FAMOTIDINE 20MG TABLET PO SCH (08:09)
[2020-04-04] MEDS: NIFEDIPINE XL 60MG TAB PO SCH (08:09)
[2020-04-04] MEDS: ASPIRIN 81MG EC TABLET PO SCH (08:09)
[2020-04-04] MEDS: ENOXAPARIN 40MG/0.4ML SYR SUBCUT SCH (08:10)
[2020-04-04] MEDS: LEVOFLOXACIN 250MG PREMIX 50 ML IV SCH (11:42)
[2020-04-04] MEDS: CLONIDINE 0.1MG TABLET PO PRN (11:43)
[2020-04-04] MEDS: CEFTRIAXONE 1,000 MG in DEXTROSE 5% WATER 50 ML IV SCH (12:46)
[2020-04-04] MEDS: POLYETHYLENE GLYCOL 3350 (17GM) 1 DOSE PACK PO SCH (21:00)
[2020-04-04] MEDS: PREGABALIN 25MG CAPSULE PO SCH (21:46)
[2020-04-04] MEDS: ATORVASTATIN CALCIUM 20MG TABLET PO SCH (21:46)
[2020-04-05] VITALS: BP 139/68
[2020-04-05] MEDS: TRAMADOL 50MG TABLET PO PRN ×2 (02:29→11:57)
[2020-04-05 04:00] VITALS: BP 110/57
[2020-04-05 06:30] LABS: BASOPHILS % 1.8 % (0.0-2.0); EOSINOPHILS % 4.4 % (0.0-5.0); HEMATOCRIT. 31.9 % (36.0-48.0); HEMOGLOBIN. 10.4 g/dL (12.0-16.0); LYMPHOCYTES % 36.4 % (20.0-50.0); MEAN CORPUSCULAR HEMOGLOBIN 23.8 pg (28.0-32.0); MEAN PLATELET VOLUME 8.6 fl (7.4-10.4); MONOCYTES % 13.2 % (2.0-8.0); NEUTROPHILS % 44.2 % (40.0-76.0); PLATELET 196 x1000/uL (130-400); RED BLOOD CELL COUNT 4.37 mill/uL (4.2-5.4); RED CELL DISTRIBUTION WIDTH 23.8 % (11.6-14.6)
[2020-04-05 07:30] LABS: PHOSPHORUS 3.6 mg/dL (2.5-4.9)
[2020-04-05 08:00] VITALS: BP 137/67
[2020-04-05] MEDS: FAMOTIDINE 20MG TABLET PO SCH (08:22)
[2020-04-05] MEDS: PREGABALIN 25MG CAPSULE PO SCH (08:22)
[2020-04-05] MEDS: ASPIRIN 81MG EC TABLET PO SCH (08:22)
[2020-04-05] MEDS: HYDROXYCHLOROQUINE SULFATE 200MG TABLET PO SCH (08:22)
[2020-04-05] MEDS: NIFEDIPINE XL 60MG TAB PO SCH (08:22)
[2020-04-05] MEDS: LOSARTAN POTASSIUM 100 MG TABLET PO SCH (08:22)
[2020-04-05] MEDS: ENOXAPARIN 40MG/0.4ML SYR SUBCUT SCH (08:22)
[2020-04-05] MEDS: ZINC SULFATE 220 MG ( 50 ) CAPSULE PO SCH (08:22)
[2020-04-05] MEDS: ASCORBIC ACID 500 MG TABLET PO SCH (08:22)
[2020-04-05] MEDS: SPIRONOLACTONE 25MG TABLET PO SCH (08:22)
[2020-04-05] MEDS: LEVOFLOXACIN 250MG PREMIX 50 ML IV SCH (11:02)
[2020-04-05 11:24] VITALS: BP 143/73
[2020-04-05 11:59] VITALS: BP 143/73
[2020-04-05] MEDS: CEFTRIAXONE 1,000 MG in DEXTROSE 5% WATER 50 ML IV SCH (12:30)
== END 2020-04-05 13:10 | disposition home health service (06) | DRG 720 ==
LOC: ER 23:14 → ENRESERV 04-02 07:44 → ER 04-02 09:30 → 5WST 04-02 09:51
PROVIDERS: ADMIT Internal Medicine; ATTEND Internal Medicine
DX: A41.9 Sepsis, unspecified organism (principal); I13.0 Hypertensive heart and chronic kidney disease with heart failure and stage 1 through stage 4 chronic kidney disease, or unspecified chronic kidney disease; I16.0 Hypertensive urgency; N18.3 Chronic kidney disease, stage 3 (moderate); N12 Tubulo-interstitial nephritis, not specified as acute or chronic; R74.8 Abnormal levels of other serum enzymes; I42.9 Cardiomyopathy, unspecified; I50.32 Chronic diastolic (congestive) heart failure; M32.9 Systemic lupus erythematosus, unspecified; I25.2 Old myocardial infarction; E78.5 Hyperlipidemia, unspecified; D63.8 Anemia in other chronic diseases classified elsewhere; E44.0 Moderate protein-calorie malnutrition; E78.00 Pure hypercholesterolemia, unspecified; I25.10 Atherosclerotic heart disease of native coronary artery without angina pectoris; I27.20 Pulmonary hypertension, unspecified; I49.5 Sick sinus syndrome; M06.9 Rheumatoid arthritis, unspecified; M19.90 Unspecified osteoarthritis, unspecified site; Z79.899 Other long term (current) drug therapy; Z68.26 Body mass index [BMI] 26.0-26.9, adult; Z80.9 Family history of malignant neoplasm, unspecified; Z82.49 Family history of ischemic heart disease and other diseases of the circulatory system; Z87.441 Personal history of nephrotic syndrome; Z95.0 Presence of cardiac pacemaker; Z97.5 Presence of (intrauterine) contraceptive device; Z88.8 Allergy status to other drugs, medicaments and biological substances; Z79.82 Long term (current) use of aspirin; Z79.2 Long term (current) use of antibiotics
CPT/HCPCS: 36415; 71045; 80048; 80053; 80061; 80305; 81003; 82550; 82553; 82570; 83036; 83735; 84100; 84156; 84484; 85025; 85651; 86140; 93005; 93306; 93970; 97162; 97166; 99285; J0692; J0696; J1650; J1885; J1956; J2270; J2405; J7030; J7060; J7517